=== PATIENT | male | born 1995 | race Caucasian/White ===

== ENCOUNTER 2020-12-30 10:38 | Emergency (ER) | payer OTHER, SELFPAY ==
[2020-12-30 10:57] VITALS: BP 142/91; PULSE 89; RESP 16; TEMP 36.8; O2SAT 100
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
== END 2020-12-30 11:55 | disposition home or self-care (01) ==
PROVIDERS: Emergency Provider Nurse Practitioner Family
DX: F41.9 Anxiety disorder, unspecified (principal)
CPT/HCPCS: 99203; G0463